=== PATIENT | female | born 1945 | race African-American/Black ===

== ENCOUNTER 2017-04-06 16:51 | Emergency (ER) | payer OTHER, MEDICAID ==
[~2017-04-06] VITALS: Ht 160 cm; Wt 62.0 kg
[~2017-04-06 16:51] MED LIST: ALBUTEROL INH; IBUP-2030 PO; IPRA0.2S51 NEB; LEVO500T89 PO; LORA1TAB; LORA2TAB2 PO; MOME13HF IH; PRED10TA PO; PRED5TAB48 PO; ROFL500T; TEMA15CA PO; TEMA30CA5; THEO100T15; TRAM50TA PO
[2017-04-06] MEDS ORDERED: IPRATROPIUM BROMIDE (0.02%) 0.5MG/2.5ML NEB HHN STA (17:04)
[2017-04-06] MEDS ORDERED: ALBUTEROL (0.5%) 2.5MG/0.5ML NEB HHN ONE (17:14)
[2017-04-06] MEDS ORDERED: MAGNESIUM 2 G PREMIX 50 ML IV ONE (17:15)
[2017-04-06] MEDS ORDERED: ALBUTEROL (0.083%) 2.5MG/3ML NEB HHN SCH (17:30)
[2017-04-06 18:06] LABS: HEMATOCRIT. 33.5 % (36.0-48.0); MEAN CORPUSCULAR HEMOGLOBIN 31.7 pg (28.0-32.0); MEAN CORPUSCULAR VOLUME 96.8 fL (81.0-99.0); MEAN PLATELET VOLUME 8.1 fl (7.4-10.4); PLATELET 263 x1000/uL (130-400); RED BLOOD CELL COUNT 3.46 mill/uL (4.2-5.4); RED CELL DISTRIBUTION WIDTH 15.8 % (11.6-14.6)
[2017-04-06 18:20] LABS: CARBON DIOXIDE 24 mEq/L (21-32); CHLORIDE 112 mEq/L (98-107)
[2017-04-06 18:34] LABS: PLATELET ESTIMATE NORMAL
[2017-04-06 18:39] VITALS: BP 122/61
== END 2017-04-06 19:19 | disposition home or self-care (01) ==
LOC: MERGE 17:12 → ER 17:12
DX: J44.1 Chronic obstructive pulmonary disease with (acute) exacerbation (principal); Z91.018 Allergy to other foods
CPT/HCPCS: 36415; 71010; 80053; 83880; 85025; 94640; 94660; 96365; 96366; 99291; J3475; J7611

== ENCOUNTER 2017-04-11 23:30 | Inpatient (IN) | payer OTHER, MEDICAID ==
[~2017-04-11] VITALS: Ht 154.9 cm; Wt 61.7 kg
[2017-04-11] MEDS ORDERED: METHYLPREDNISOLONE SOD SUCC 125 MG/2 ML VIAL IV STA (23:38)
[2017-04-11] MEDS ORDERED: ALBUTEROL (0.083%) 2.5MG/3ML NEB HHN STA (23:38)
[2017-04-11] MEDS ORDERED: IPRATROPIUM BROMIDE (0.02%) 0.5MG/2.5ML NEB HHN STA (23:38)
[2017-04-11 23:59] LABS: HEMATOCRIT. 35.4 % (36.0-48.0); HEMOGLOBIN. 11.4 g/dL (12.0-16.0); MEAN CORPUSCULAR HEMOGLOBIN 31.5 pg (28.0-32.0); MEAN CORPUSCULAR VOLUME 98.2 fL (81.0-99.0); MEAN PLATELET VOLUME 8.1 fl (7.4-10.4); PLATELET 261 x1000/uL (130-400); RED CELL DISTRIBUTION WIDTH 16.1 % (11.6-14.6)
[2017-04-12 00:06] LABS: BG BASE EXCESS -1.2 mmol/L (-2.0-2.0); BG BILEVEL POS AIRWAY PRESSURE 15/5; BG CARBOXYHEMOGLOBIN 0.7 % (0.5-1.5); BG DEOXYHEMOGLOBIN 2.2 % (0.0-5.0); BG FRACTION INSPIRED OXYGEN 35; BG HCO3 ACT 24.9 mmol/L (22.0-26.0); BG METHEMOGLOBIN 0.2 % (0.0-1.5); BG OXYGEN SATURATION 97.8 % (92.0-98.5); BG OXYHEMOGLOBIN 96.9 % (94.0-97.0); BG PCO2 47.7 mmHg (35.0-45.0); BG PH 7.336 (7.350-7.450); BG PO2 116.6 mmHg (75.0-100.0); BG SAMPLE SITE RIGHT BRACHIAL; BG TOTAL HEMOGLOBIN 12.2 g/dL (12.0-18.0); BG VENT MODE MASK - BIPAP; BG VENT RATE 16 set
[2017-04-12 00:13] LABS: CARBON DIOXIDE 27 mEq/L (21-32); CHLORIDE 107 mEq/L (98-107); TROPONIN I < 0.02 ng/mL (0.00-0.04)
[2017-04-12 00:55] LABS: PLATELET ESTIMATE NORMAL
[2017-04-12 08:00] VITALS: BP 118/78
[2017-04-12 08:49] VITALS: BP 118/78
[2017-04-12] MEDS ORDERED: IPRATROPIUM BROMIDE (0.02%) 0.5MG/2.5ML NEB HHN PRN (11:30)
[2017-04-12] MEDS ORDERED: IBUPROFEN 800MG TABLET PO PRN (11:30)
[2017-04-12] MEDS: METHYLPREDNISOLONE SOD SUCC 40 MG/ML VIAL IV SCH ×3 (11:30→21:11)
[2017-04-12 12:00] VITALS: BP 117/61
[2017-04-12] MEDS ORDERED: PNEUMOCOCCAL VACCINE IM ONE (15:00)
[2017-04-12] MEDS ORDERED: LORAZEPAM 1MG TABLET PO PRN (15:30)
[2017-04-12 16:00] VITALS: BP 114/74
[2017-04-12] MEDS: IPRATROPIUM/ALBUTEROL 0.5-3(2.5)MG/3ML NEB HHN SCH ×3 (18:05→23:49)
[2017-04-12 20:00] VITALS: BP 2/103
[2017-04-12] MEDS: TEMAZEPAM 15MG CAPSULE PO SCH (21:11)
[2017-04-13] VITALS (7 sets, daily range): BP systolic 105–170; BP diastolic 63–84
[2017-04-13] MEDS: IPRATROPIUM/ALBUTEROL 0.5-3(2.5)MG/3ML NEB HHN SCH ×5 (04:16→21:33)
[2017-04-13] MEDS: METHYLPREDNISOLONE SOD SUCC 40 MG/ML VIAL IV SCH ×3 (06:08→21:15)
[2017-04-13 07:47] LABS: HEMATOCRIT. 34.5 % (36.0-48.0); HEMOGLOBIN. 11.2 g/dL (12.0-16.0); MEAN CORPUSCULAR HEMOGLOBIN 31.7 pg (28.0-32.0); MEAN CORPUSCULAR VOLUME 97.3 fL (81.0-99.0); MEAN PLATELET VOLUME 8.1 fl (7.4-10.4); PLATELET 267 x1000/uL (130-400); RED BLOOD CELL COUNT 3.54 mill/uL (4.2-5.4); RED CELL DISTRIBUTION WIDTH 15.9 % (11.6-14.6)
[2017-04-13] MEDS: ENOXAPARIN 40MG/0.4ML SYR SUBCUT SCH (08:18)
[2017-04-13 08:46] LABS: CARBON DIOXIDE 26 mEq/L (21-32); CHLORIDE 104 mEq/L (98-107)
[2017-04-13] MEDS ORDERED: TEMAZEPAM 15MG CAPSULE PO SCH (09:00)
[2017-04-13 10:09] LABS: PLATELET ESTIMATE NORMAL
[2017-04-13] MEDS: TEMAZEPAM 15MG CAPSULE PO SCH (21:15)
[2017-04-14] VITALS (7 sets, daily range): BP systolic 109–146; BP diastolic 69–85
[2017-04-14] MEDS: IPRATROPIUM/ALBUTEROL 0.5-3(2.5)MG/3ML NEB HHN SCH ×6 (00:48→21:53)
[2017-04-14] MEDS: METHYLPREDNISOLONE SOD SUCC 40 MG/ML VIAL IV SCH ×3 (06:12→21:03)
[2017-04-14] MEDS: ENOXAPARIN 40MG/0.4ML SYR SUBCUT SCH (08:39)
[2017-04-14] MEDS: TEMAZEPAM 15MG CAPSULE PO SCH (21:03)
[2017-04-15] MEDS: IPRATROPIUM/ALBUTEROL 0.5-3(2.5)MG/3ML NEB HHN SCH ×4 (01:35→11:09)
[2017-04-15 04:01] VITALS: BP 118/72
[2017-04-15] MEDS: METHYLPREDNISOLONE SOD SUCC 40 MG/ML VIAL IV SCH (06:10)
[2017-04-15 08:00] VITALS: BP 137/77
[2017-04-15] MEDS: ENOXAPARIN 40MG/0.4ML SYR SUBCUT SCH (08:15)
[2017-04-15 08:40] VITALS: BP 137/77
== END 2017-04-15 12:15 | disposition home or self-care (01) | DRG 189 ==
LOC: ER 23:30 → 8WST 04-12 04:00 → MERGE 04-12 04:00 → EDBEDREQ 04-12 04:04 → ENRESERV 04-12 07:09
PROVIDERS: ADMIT Internal Medicine; ATTEND Internal Medicine
PROC: 5A09357 Assistance with Respiratory Ventilation, Less than 24 Consecutive Hours, Continuous Positive Airway Pressure (ICD-10-PCS; principal; 2017-04-12)
DX: J96.00 Acute respiratory failure, unspecified whether with hypoxia or hypercapnia (principal); I71.2 Thoracic aortic aneurysm, without rupture; J44.1 Chronic obstructive pulmonary disease with (acute) exacerbation; D72.829 Elevated white blood cell count, unspecified; T38.0X5A Adverse effect of glucocorticoids and synthetic analogues, initial encounter; B97.89 Other viral agents as the cause of diseases classified elsewhere; Z87.891 Personal history of nicotine dependence; Z88.8 Allergy status to other drugs, medicaments and biological substances; Z79.899 Other long term (current) drug therapy
CPT/HCPCS: 36415; 36600; 71010; 80048; 82375; 82805; 83880; 84484; 85025; 90732; 93005; 94640; 94644; 94660; 96374; 99291; J1650; J2920; J2930; J7611; J7620

== ENCOUNTER 2017-05-05 21:06 | Inpatient (IN) | payer OTHER, MEDICAID ==
[~2017-05-05] VITALS: Ht 157.5 cm; Wt 63.0 kg
[2017-05-05] MEDS ORDERED: IPRATROPIUM BROMIDE (0.02%) 0.5MG/2.5ML NEB HHN STA (21:24)
[2017-05-05] MEDS ORDERED: METHYLPREDNISOLONE SOD SUCC 125 MG/2 ML VIAL IV STA (21:24)
[2017-05-05 21:42] LABS: HEMATOCRIT. 34.1 % (36.0-48.0); HEMOGLOBIN. 11.5 g/dL (12.0-16.0); MEAN CORPUSCULAR VOLUME 94.7 fL (81.0-99.0); MEAN PLATELET VOLUME 7.3 fl (7.4-10.4); PLATELET 451 x1000/uL (130-400); RED CELL DISTRIBUTION WIDTH 15.2 % (11.6-14.6)
[2017-05-05] MEDS: ALBUTEROL (0.083%) 2.5MG/3ML NEB HHN SCH ×2 (21:42→22:50)
[2017-05-05 21:51] LABS: INR 1.1; PROTHROMBIN TIME 11.1 sec (9.4-11.6)
[2017-05-05 21:58] LABS: CARBON DIOXIDE 23 mEq/L (21-32); CHLORIDE 108 mEq/L (98-107); TROPONIN I < 0.02 ng/mL (0.00-0.04)
[2017-05-05 22:10] LABS: NUCLEATED RED BLOOD CELLS 2 /100 WBC; PLATELET ESTIMATE INCREASED
[2017-05-06 01:20] VITALS: BP 125/79
[2017-05-06 04:00] VITALS: BP 108/66
[2017-05-06] MEDS ORDERED: MORPHINE SULFATE 4 MG/ML CPJ (NOT FOR IM USE) IV PRN (07:15)
[2017-05-06] MEDS ORDERED: CLONIDINE 0.1MG TABLET PO PRN (07:15)
[2017-05-06] MEDS ORDERED: IPRATROPIUM/ALBUTEROL 0.5-3(2.5)MG/3ML NEB HHN PRN (07:15)
[2017-05-06 08:00] VITALS: BP 107/74
[2017-05-06] MEDS ORDERED: LEVOFLOXACIN 500MG PREMIX 100 ML IV SCH (08:30)
[2017-05-06] MEDS ORDERED: ENOXAPARIN 40MG/0.4ML SYR SUBCUT SCH (09:00)
[2017-05-06] MEDS: IPRATROPIUM/ALBUTEROL 0.5-3(2.5)MG/3ML NEB HHN SCH ×2 (11:47→14:48)
[2017-05-06] MEDS ORDERED: INFLUENZA VIRUS VACCINE 0.5ML SYR IM ONE (12:00)
[2017-05-06 12:02] VITALS: BP 111/71
[2017-05-06] MEDS ORDERED: POTASSIUM CHLORIDE 20MEQ TABLET SR PO NR (13:15)
[2017-05-06] MEDS ORDERED: METHYLPREDNISOLONE SOD SUCC 125 MG/2 ML VIAL IV SCH (14:00)
[2017-05-06 15:29] VITALS: BP 142/52
== END 2017-05-06 16:05 | disposition home or self-care (01) | DRG 189 ==
LOC: ER 21:59 → 5WST 22:48 → ENRESERV 23:15
PROVIDERS: ADMIT Hospitalist; ATTEND Hospitalist
DX: J96.20 Acute and chronic respiratory failure, unspecified whether with hypoxia or hypercapnia (principal); E44.0 Moderate protein-calorie malnutrition; Z99.81 Dependence on supplemental oxygen; J44.1 Chronic obstructive pulmonary disease with (acute) exacerbation; I10 Essential (primary) hypertension; E87.6 Hypokalemia; D64.9 Anemia, unspecified; Z79.899 Other long term (current) drug therapy; Z87.891 Personal history of nicotine dependence
CPT/HCPCS: 36415; 71010; 80053; 83880; 84484; 85025; 85610; 90686; 93005; 94640; 96374; 99291; J1650; J1956; J2930; J7611; J7620